=== PATIENT | female | born 1980 | race Caucasian/White ===

== ENCOUNTER 2016-06-24 08:32 | Emergency (ER) | payer MEDICAID ==
[2016-06-24 08:33] VITALS: BMI 31.3
[2016-06-24 08:38] VITALS: BP 168/82
--- NOTE | 2016-06-24 08:59 | EDPRACDOC ---
- General Information Chief Complaint: Neck Pain Stated Complaint: KNOTS ON RIGHT SIDE OF NECK Time Seen by Provider: 06/24/16 08:52 Information Source: Patient Mode of Arrival:: Care Home Home Medications: Home Medications Cephalexin Monohydrate [Keflex] 500 mg PO Q6H #28 cap 06/22/15 Oxycodone HCl/Acetaminophen [Percocet 5-325 mg Tablet] 1 - 2 tab PO Q4H PRN #15 tab 06/22/15 Oxycodone HCl [Roxicodone] 5 mg PO Q4 PRN #10 tablet 04/25/16 Penicillin V Potassium 500 mg PO TID #30 tablet 04/25/16 Sulfamethoxazole/Trimethoprim [Bactrim Ds Tablet] 1 tab PO BID #14 tab 06/24/16 Allergies/Adverse Reactions: Allergies Allergy/AdvReac Type Severity Reaction Status Date / Time promethazine HCl Allergy Unknown PASSED OUT Verified 06/24/16 08:38 [From Phenergan] - History of Present Illness Onset: 2 days HPI: Pt c/o "spot on R scalp" and "lump on R neck" x 2-3 days. Denies fever, earache , sore throat, congestion, cough, red streaking. Location: Reports: Head Relevent History Of: Reports: None Prior Abscess: Reports: None Pain: Reports: Mild Quality: Reports: Red Associated Signs & Symptoms: Reports: None ED Past Medical History - History Reviewed Yes Nurses notes reviewed and agree except as marked - Patient Medical History Respiratory History: Reports: Asthma Psychological History: Denies: Depression - Social Medical History Smoking Status: Heavy tobacco smoker (5 or more cigarettes/day or daily pipe/ cigar) ETOH: None Substance Abuse: None EDM Review of Systems - Review of Systems Constitutional: No Symptoms Reported. negative: Fever, Chills, Weakness, Fatigue, Loss of Appetite Ears: No Symptoms Reported. negative: Pain, Hearing Loss, Drainage, Ear Pulling Throat: No Symptoms Reported. negative: Pain, Swelling Nose: No Symptoms Reported. negative: Congestion, Bleeding, Discharge, Injection, Swelling, Deformity, Ecchymosis, Tender, Abrasion, Laceration Mouth: No Symptoms Reported. negative: Pain, Drooling Respiratory: No Symptoms Reported. negative: Cough, Brassy Cough, Barky Cough, Shortness of Breath, Wheezing, Hemoptysis Neurological: No Symptoms Reported. negative: Headache, Dizziness, Seizure, Numbness, Weakness, Speech Difficulty, Gait Difficulty Musculoskeletal: No Symptoms Reported. negative: Neck, Chestwall, Ribs, Back, Shoulder, Arm, Elbow, Forearm, Wrist, Hand, Pelvis, Hip, Femur, Knee, Leg, Ankle , Foot Integumentary: Wound Allergic/Immunologic: No Symptoms Reported. negative: Hives, Itching Hematologic: Lymphadenopathy Psychiatric: No Symptoms Reported. negative: Anxiety, Depression, Hallucinations, Insomnia, Suicidal - Physical Exam Constitutional: Alert Oriented to: Time, Person, Place Last recorded Vital Signs: Last Vital Signs Temp 97.6 F 06/24/16 08:37 Pulse 70 06/24/16 08:37 Resp 18 06/24/16 08:37 BP 168/82 06/24/16 08:37 Pulse Ox 100 06/24/16 08:37 Oxygen Pulse Oxygen Saturation 100 O2 Device Oxygen Flow Rate Fraction of Inspired Oxygen ( FIO2) - HEENT Head: Swelling, Tender (R scalp patch of erythema about 2cm in diameter, without exudate or open wound) Eye Exam: Normal (PERRL, EOMI, Sclera white) Oropharynx: Normal (Pharynx:Moist without exudate,Gums-no swelling) Tympanic Membrane: Normal ENT EAC: Normal Nose: No Symptoms Reported (septum midline) Neck: Lymphadenopathy (posterior cervical chain adenopathy on R with tenderness) - Respiratory/Cardiovascular Respiratory: Normal - CTA (BBS clear to auscultation without adventitious sounds ) Cardiovascular: Normal (RRR without murmur, gallop or rub) - Integumentary Skin: Normal, Warm, Dry Lymphatics: Cervical Adenopathy - Neurologic Memory Impaired: Normal Motor Function: Normal (Normal tone, Pulses 2+ No cyanosis or edema, FROM) Mood Description: Normal Perception: Normal ED Abscess/Mass Exam - Integumentary Skin: Normal, Warm, Dry Mass: Red, Tender Lymphatics: Normal - Differential Diagnosis Abscess, Cellulitis Decision Time to Discharge: 09:00 - Departure Disposition: Home Condition: Good Final Diagnosis: Cellulitis of scalp, Cervical lymphadenopathy Instructions: Cellulitis (ED), Lymphadenopathy (ED) Education/Counseling Given To: Patient Education/Counseling Given Regarding: Diagnosis, Treatment, Follow Up Referrals: None,No Provider [Primary Care Provider] - One Week Ronaldo Alvarado MD [Staff Physician] - One Week Prescriptions: New Sulfamethoxazole/Trimethoprim [Bactrim Ds Tablet] 1 tab PO BID #14 tab No Action Cephalexin Monohydrate [Keflex] 500 mg PO Q6H #28 cap Oxycodone HCl/Acetaminophen [Percocet 5-325 mg Tablet] 1 - 2 tab PO Q4H PRN # 15 tab PRN Reason: Pain Oxycodone HCl [Roxicodone] 5 mg PO Q4 PRN #10 tablet PRN Reason: Pain Penicillin V Potassium 500 mg PO TID #30 tablet Additional Instructions: Use Tylenol every 4 hours and Motrin every 6 hours as needed for pain.
[2016-06-24 09:07] VITALS: PULSE 62; TEMP 98.9
== END 2016-06-24 09:05 | disposition home or self-care (01) ==
LOC: ED 08:32
DX: L03.811 Cellulitis of head [any part, except face] (principal); R59.0 Localized enlarged lymph nodes
CPT/HCPCS: 99282